=== PATIENT | male | born 1955 | race Caucasian/White ===

== ENCOUNTER 2019-08-08 16:57 | Emergency (ER) | payer OTHER, SELFPAY ==
[2019-08-08] VITALS (9 sets, daily range): BP systolic 143–159; BP diastolic 84–97; PULSE 78–86; RESP 13–18; TEMP 36.7; O2SAT 95–99; BMI 27.1
--- NOTE | 2019-08-08 17:37 | DI.US.S_ITS ---
PROCEDURE: US PERIPH VENOUS LOW EXTREM RT INDICATIONS: RIGHT CALF PAIN TECHNIQUE: Real-time imaging, as well as color and pulse Doppler interrogation, were performed of the lower extremity deep veins from the inguinal ligament to the popliteal fossa. COMPARISON: None. FINDINGS: Deep venous thrombosis present within the distal femoral vein (SFV) and popliteal vein IMPRESSION: Positive examination for deep venous thrombosis. Dictated by: Mac Oneill M.D. on 08/08/2019 at 19:16 Approved by: Mac Oneill M.D. on 08/08/2019 at 19:17
--- NOTE | 2019-08-08 17:43 | DI.RAD.S_ITS ---
PROCEDURE: XR CHEST 1V INDICATIONS: SHORTNESS OF BREATH TECHNIQUE: One view of the chest was acquired. COMPARISON: None. FINDINGS: Surgical changes and devices: None. Lungs and pleura: Lungs are clear. No pleural effusions or pneumothorax. Mediastinum: Mediastinal contours appear normal. Heart size is normal. Bones and chest wall: No suspicious bony lesions. Overlying soft tissues appear unremarkable. IMPRESSION: No acute disease Dictated by: Mac Oneill M.D. on 08/08/2019 at 18:08 Approved by: Mac Oneill M.D. on 08/08/2019 at 18:09
[2019-08-08] MEDS: SODIUM CHLORIDE 0.9% 1,000 ML 999 ML IV (17:45)
--- NOTE | 2019-08-08 17:46 | ED.LOWEXIN ---
HPI - Extremity Injury (Lower) <TOMA Capone - Last Filed: 08/08/19 21:53> General Chief Complaint: Extremity Injury, Lower Stated Complaint: possible DVT right leg Time Seen by Provider: 08/08/19 17:14 Mode of arrival: Ambulatory History of Present Illness HPI Narrative: 64-year-old male with a history of hypertension hyperlipidemia, presents emergency department today complaining of right calf pain and swelling. He states the pain is an intermittent ?cramping? pain that is worse with weight-bearing and palpation. This started 5 days ago after a long car ride that lasted about 7 hours. The day after it started he embarked on another 7 are car ride and reported worsening symptoms. He states today he developed some shortness of breath and is worried about a blood clot. He denies any history of blood clots, denies taking any blood thinners. Patient denies any fevers, chills, cough, nausea, vomiting, abdominal pain, chest pain, syncope, or other concerns. Related Data Home Medications Medication Instructions Recorded Confirmed atorvastatin 40 mg PO DAILY 08/08/19 08/08/19 lisinopril 10 mg PO DAILY 08/08/19 08/08/19 Allergies Allergy/AdvReac Type Severity Reaction Status Date / Time No Known Drug Allergies Allergy Verified 08/08/19 17:54 Review of Systems <TOMA Capone - Last Filed: 08/08/19 21:53> Review of Systems Narrative: REVIEW OF SYSTEMS: GENERAL: Denies fever or chills. HENT: No head trauma, hearing loss or sore throat. EYES: No loss of vision, double vision, eye pain, or irritation. CARDIOVASCULAR: No chest pain or syncope. RESPIRATORY: Patient reports shortness of breath, see HPI.. GASTROINTESTINAL: No nausea, vomiting, diarrhea, or constipation. GENITOURINARY: No flank pain or dysuria. MUSCULOSKELETAL: Patient reports right-sided calf pain, see HPI. INTEGUMENTARY: No rash, lesions, or pruritus. NEURO: No numbness, tingling, memory loss, or confusion. PSYCH: No behavior or mood changes. Patient History <TOMA Capone - Last Filed: 08/08/19 21:53> Medical History HLD (hyperlipidemia) (Acute) HTN (hypertension) (Acute) Social History marital status: household members: spouse Smoking Status: Never smoker Exam <TOMA Capone - Last Filed: 08/08/19 21:53> Initial Vital Signs Initial Vital Signs: Vital Signs Temperature 98.1 F 08/08/19 17:00 Pulse Rate 86 08/08/19 17:00 Respiratory Rate 16 08/08/19 17:00 Blood Pressure 151/95 H 08/08/19 17:00 Pulse Oximetry 99 08/08/19 17:00 PHYSICAL EXAMINATION: GENERAL: Well groomed, alert, and cooperative. Answers questions promptly and appropriately. Vital signs noted. HENT: Normocephalic, atraumatic. Ear canals patent. Oral mucosa is pink and moist. EYES: Conjunctiva pink, sclera white, no periorbital swelling. CHEST: Normal to inspection and without deformities. CARDIOVASCULAR: S1 and S2 sounds normal. Regular rate and rhythm, no murmurs, clicks, or bruits. No pedal edema. RESPIRATORY: Normal respiratory rate, trachea midline, airway patent. No stridor, nasal flaring or accessory muscle use. Lungs are clear in all gonzalez without wheeze, rhonchi, or crackles. GASTROINTESTINAL: Bowel sounds normoactive. Abdomen is soft and non-tender. No organomegaly. MUSCULOSKELETAL: Right calf slightly enlarged when compared to left calf without erythema or induration. Tenderness to palpation of calf. Pedal pulses intact and equal bilaterally. Normal gait and coordination. Equal tone and mass bilaterally. EXTREMITIES: CMS intact. Moves all extremities. No pedal edema. SKIN: Warm, dry, soft, appropriate color for ethnicity. No lesions, rashes, or wounds. NEURO: Alert and Oriented X 3. Good coordination. No ataxia, or sensory deficits, or cognitive issues. PSYCH: Appropriate affect and mood. <Steven Buchanan DO - Last Filed: 08/08/19 23:33> Initial Vital Signs Initial Vital Signs: Vital Signs Temperature 98.1 F 08/08/19 17:00 Pulse Rate 86 08/08/19 17:00 Respiratory Rate 16 08/08/19 17:00 Blood Pressure 151/95 H 08/08/19 17:00 Pulse Oximetry 99 08/08/19 17:00 Scores <Ruth TOMA Pickard - Last Filed: 08/08/19 21:53> Wells' Criteria for DVT Active Cancer (Treatment within 6 months): No Bedridden recently >3 days or major surgery within 4 weeks: No Calf Swelling >3cm compared to other leg: Yes Collateral (nonvericose) superficial veins present: No Entire leg swollen: No Localized tenderness along the deep vein system: Yes Pitting edema, confined to symtomatic leg: No Paralysis, paresis, or recent plaster immobilization of ext: No Previously documented DVT: No Alternative dx to DVT as likely or more likely: No Wells' criteria for DVT: 2 Course <Ruth TOMA Pickard - Last Filed: 08/08/19 21:53> Course Course Narrative: After CT a result of pulmonary embolism and ultrasound result of DVT, patient was started on heparin. [facility] was called at 2000 for consultation and possible transfer. [facility] was called for transfer as [facility] was unable to return call for 2 hours. I spoke with Dr. Villafuerte who accepts patient. ALS transfer form sign. Patient consents to transfer. Orders Ordered: ED Orders 08/08/19 17:37 US periph venous low extrem rt Stat 08/08/19 17:43 XR chest 1V Stat 08/08/19 18:00 B Type Natriuretic Peptide Stat Complete Blood Count AUTO DIFF Stat Comprehensive Metabolic Panel Stat D Dimer Stat Lipase Stat Partial Thromboplastin Time Stat Prothrombin Time INR Stat Troponin & CK Cardiac Panel Stat 08/08/19 18:59 EKG-12 Lead Stat 08/08/19 19:05 CT angio chest PE protocol Stat Discontinued Medications Heparin Sodium (Porcine) (Heparin) 7,100 unit 80 unit/kg (7100 unit) IV NOW ONE Stop: 08/08/19 19:54 Last Admin: 08/08/19 20:07 Dose: 7,100 unit Documented by: ENEIDA Sodium Chloride (Normal Saline 0.9%) 1,000 mls @ 150 mls/hr IV CONT KARIN Last Infusion: 08/08/19 21:03 Dose: 0 mls/hr Documented by: Admin: 08/08/19 17:45 Dose: 999 mls/hr Documented by: ENEIDA Heparin Sodium/Dextrose (Heparin Drip) 25,000 unit in 500 mls @ 31.842 mls/hr IV CONT KARIN; Protocol Last Admin: 08/08/19 20:08 Dose: 18 units/kg/hr, 31.842 mls/hr Documented by: ENEIDA Reevaluation(s) Reevaluation #1: Re-evaluation of patient at 2042, patient remains hemodynamically stable without increasing symptoms. Patient understands diagnosis and plan of care, remains at bedside. Consultations Consultation #1: Patient staffed with Dr. Buchaann. Vital Signs Vital signs: Vital Signs - 8 hr 08/08/19 17:00 08/08/19 19:15 08/08/19 20:00 Temperature 98.1 F Pulse Rate 86 84 78 Respiratory Rate 16 18 18 Blood Pressure 151/95 H Blood Pressure [Right Arm] 150/94 H 159/97 H Pulse Oximetry 99 98 99 08/08/19 20:30 08/08/19 21:00 08/08/19 21:30 Temperature Pulse Rate 83 79 78 Respiratory Rate 17 13 16 Blood Pressure Blood Pressure [Right Arm] 147/84 H 143/96 H Pulse Oximetry 98 98 97 08/08/19 22:01 08/08/19 22:34 08/08/19 22:41 Temperature 98.1 F Pulse Rate 82 80 78 Respiratory Rate 16 13 17 Blood Pressure Blood Pressure [Right Arm] 154/93 H 143/90 H 143/90 H Pulse Oximetry 97 95 98 <Steven Buchanan, - Last Filed: 08/08/19 23:33> Orders Ordered: ED Orders 08/08/19 17:37 US periph venous low extrem rt Stat 08/08/19 17:43 XR chest 1V Stat 08/08/19 18:00 B Type Natriuretic Peptide Stat Complete Blood Count AUTO DIFF Stat Comprehensive Metabolic Panel Stat D Dimer Stat Lipase Stat Partial Thromboplastin Time Stat Prothrombin Time INR Stat Troponin & CK Cardiac Panel Stat 08/08/19 18:59 EKG-12 Lead Stat 08/08/19 19:05 CT angio chest PE protocol Stat Discontinued Medications Heparin Sodium (Porcine) (Heparin) 7,100 unit 80 unit/kg (7100 unit) IV NOW ONE Stop: 08/08/19 19:54 Last Admin: 08/08/19 20:07 Dose: 7,100 unit Documented by: ENEIDA Sodium Chloride (Normal Saline 0.9%) 1,000 mls @ 150 mls/hr IV CONT KARIN Last Infusion: 08/08/19 21:03 Dose: 0 mls/hr Documented by: Admin: 08/08/19 17:45 Dose: 999 mls/hr Documented by: ENEIDA Heparin Sodium/Dextrose (Heparin Drip) 25,000 unit in 500 mls @ 31.842 mls/hr IV CONT KARIN; Protocol Last Admin: 08/08/19 20:08 Dose: 18 units/kg/hr, 31.842 mls/hr Documented by: ENEIDA Vital Signs Vital signs: Vital Signs - 8 hr 08/08/19 17:00 08/08/19 19:15 08/08/19 20:00 Temperature 98.1 F Pulse Rate 86 84 78 Respiratory Rate 16 18 18 Blood Pressure 151/95 H Blood Pressure [Right Arm] 150/94 H 159/97 H Pulse Oximetry 99 98 99 08/08/19 20:30 08/08/19 21:00 08/08/19 21:30 Temperature Pulse Rate 83 79 78 Respiratory Rate 17 13 16 Blood Pressure Blood Pressure [Right Arm] 147/84 H 143/96 H Pulse Oximetry 98 98 97 08/08/19 22:01 08/08/19 22:34 08/08/19 22:41 Temperature 98.1 F Pulse Rate 82 80 78 Respiratory Rate 16 13 17 Blood Pressure Blood Pressure [Right Arm] 154/93 H 143/90 H 143/90 H Pulse Oximetry 97 95 98 MDM - Extremity Injury (Lower) <TOMA Capone - Last Filed: 08/08/19 21:53> Medical Records Attestation: I reviewed the patient's medical records. Lab Data Attestation: I reviewed the patient's lab results. Result diagrams: 08/08/19 18:00 08/08/19 18:00 Labs: Lab Results 08/08/19 08/08/19 08/08/19 Range/Units 18:00 18:00 18:00 WBC 6.6 (4.5-11.0) X10^3/uL RBC 5.23 (4.5-5.9) X10^6/uL Hgb 16.0 (13.5-17.5) g/dL Hct 45.1 (41-53) % MCV 86.2 (80-100) fL MCH 30.6 (26-34) PG MCHC 35.5 (30-36) % RDW 13.4 (11.6-14.8) % Plt Count 175 (150-400) X10^3/uL Neut % (Auto) 70.4 (50-75) % Lymph % (Auto) 15.6 L (25-40) % [place] % (Auto) 10.8 (3-14) % Eos % (Auto) 2.3 (2-4) % Baso % (Auto) 0.9 (0-2) % Neut # (Auto) 4600 (5440-9118) /uL Lymph # (Auto) 1000 L (8067-2973) /uL [place] # (Auto) 700 (0-900) /uL Eos # (Auto) 100 (0-450) /uL Baso # (Auto) 100 (0-100) /uL PT 11.8 (10.1-12.7) SECONDS INR 1.0 (0.9-1.3) APTT 31 (26.4-36.2) SECONDS D-Dimer 2195 H (<230) ng/mL Sodium 139 (137-145) mmol/L Potassium 4.1 (3.4-5.1) mmol/L Chloride 102 (98-107) mmol/L Carbon Dioxide 29 (22-32) mmol/L BUN 17 (9-20) mg/dL Creatinine 1.00 (0.66-1.25) mg/dL Estimated GFR > 60.0 (>60) mL/min BUN/Creatinine Ratio 17.0 (6-22) Glucose 88 (80-110) mg/dL Calcium 9.6 (8.4-10.2) mg/dL Total Bilirubin 0.8 (0.2-1.3) mg/dL AST 30 (17-59) IU/L ALT 36 (<50) IU/L Alkaline Phosphatase 94 (38-126) U/L Total Creatine Kinase 142 (55-170) U/L CK-MB (CK-2) 1.43 (<2.37) ng/mL CK-MB (CK-2) Rel Index 1.0 L (1.5-5.0) % Troponin I 0.013 (0.01-0.034) ng/mL B-Natriuretic Peptide (<100) Total Protein 8.1 (6.3-8.2) g/dL Albumin 4.6 (3.5-5.0) g/dL Globulin 3.5 (1.7-4.1) g/dL Albumin/Globulin Ratio 1.3 (1.0-2.8) Lipase 83 (23-300) U/L 08/08/ Range/Units 18:00 WBC (4.5-11.0) X10^3/uL RBC (4.5-5.9) X10^6/uL Hgb (13.5-17.5) g/dL Hct (41-53) % MCV (80-100) fL MCH (26-34) PG MCHC (30-36) % RDW (11.6-14.8) % Plt Count (150-400) X10^3/uL Neut % (Auto) (50-75) % Lymph % (Auto) (25-40) % [place] % (Auto) (3-14) % Eos % (Auto) (2-4) % Baso % (Auto) (0-2) % Neut # (Auto) (7017-2831) /uL Lymph # (Auto) (8450-5284) /uL [place] # (Auto) (0-900) /uL Eos # (Auto) (0-450) /uL Baso # (Auto) (0-100) /uL PT (10.1-12.7) SECONDS INR (0.9-1.3) APTT (26.4-36.2) SECONDS D-Dimer (<230) ng/mL Sodium (137-145) mmol/L Potassium (3.4-5.1) mmol/L Chloride (98-107) mmol/L Carbon Dioxide (22-32) mmol/L BUN (9-20) mg/dL Creatinine (0.66-1.25) mg/dL Estimated GFR (>60) mL/min BUN/Creatinine Ratio (6-22) Glucose (80-110) mg/dL Calcium (8.4-10.2) mg/dL Total Bilirubin (0.2-1.3) mg/dL AST (17-59) IU/L ALT (<50) IU/L Alkaline Phosphatase (38-126) U/L Total Creatine Kinase (55-170) U/L CK-MB (CK-2) (<2.37) ng/mL CK-MB (CK-2) Rel Index (1.5-5.0) % Troponin I (0.01-0.034) ng/mL B-Natriuretic Peptide < 100 (<100) Total Protein (6.3-8.2) g/dL Albumin (3.5-5.0) g/dL Globulin (1.7-4.1) g/dL Albumin/Globulin Ratio (1.0-2.8) Lipase (23-300) U/L Imaging Data CTA: Radiologist's impression: [address] [address] [address] Scan Report Signed Patient: Gary Dallas BMR#: [id number] : 7Acct:[id number] Age/Sex: 64 / MDate of Service: 08/08/19 Loc: ED Accession Number: [id number] Procedure: CT angio chest PE protocol Ordering Provider: Ruth Pickard PROCEDURE: CT ANGIO CHEST PE PROTOCOL INDICATIONS: SOB, +d-dimer, high risk TECHNIQUE: After the administration of intravenous contrast, 2 mm thick sections acquired from the pulmonary apices to the posterior costophrenic angles. 3-dimensional maximum intensity projection (MIP) coronal and sagittal reformats were then acquired through the thorax. For radiation dose reduction, the following was used: automated exposure control, adjustment of mA and/or kV according to patient size. COMPARISON: None. FINDINGS: Image quality: Excellent. Pulmonary arteries: Prominent main pulmonary artery saddle embolus is present image 74 series 4. Bilateral numerous lobar and segmental pulmonary emboli are seen in both upper and lower lobes. No definite abnormal bowing of the interventricular septum. Lungs and pleura: Scattered subsegmental atelectasis and/or scarring. No focal consolidation.. No pleural effusions or pneumothorax. Central and peripheral airways are patent. Presumed calcified granuloma seen in the right lung on image 182 series 5. Nonspecific 3 mm pulmonary nodule seen in the right lower lobe on image 193 series 5. 6 mm nodule seen in the left lung base on image to 34 series 5. Indeterminate 1 mm left upper lobe pulmonary nodule image 100 series 5. Mediastinum: Heart size is normal, without pericardial effusion. No mediastinal or hilar adenopathy. Thoracic aorta is normal in caliber and enhancement. Esophagus is normal in caliber, without hiatal hernia. Bones and chest wall: No suspicious bony lesions. Ribs and thoracic spine appear intact throughout. Thyroid gland unremarkable. No axillary or supraclavicular adenopathy. Abdomen: Visualized upper abdominal solid organs appear normal in the early arterial phase of enhancement. IMPRESSION: Extensive pulmonary emboli, including main pulmonary saddle embolus as above. No acute consolidation, however indeterminate subcentimeter pulmonary nodules for which a repeat chest CT is recommended in 6 months to assess for possible early metastatic or malignant etiologies. Findings were personally telephoned and discussed with Ruth CHUA in the emergency department at 1947 hours 08/08/19. Dictated by: Mac Oneill M.D. on 08/08/2019 at 19:39 Approved by: Mac Oneill M.D. on 08/08/2019 at 19:48 US LE: Radiologist's impression: [address] [address] Ultrasound Report Signed Patient: BurtGary BMR#: [id number] : 7Acct:[id number] Age/Sex: 64 / MDate of Service: 08/08/19 Loc: ED Accession Number: [id number] Procedure: US periph venous low extrem rt Ordering Provider: Ruth Pickard PROCEDURE: US PERIPH VENOUS LOW EXTREM RT INDICATIONS: RIGHT CALF PAIN TECHNIQUE: Real-time imaging, as well as color and pulse Doppler interrogation, were performed of the lower extremity deep veins from the inguinal ligament to the popliteal fossa. COMPARISON: None. FINDINGS: Deep venous thrombosis present within the distal femoral vein (SFV) and popliteal vein IMPRESSION: Positive examination for deep venous thrombosis. Dictated by: Mac Oneill M.D. on 08/08/2019 at 19:16 Approved by: Mac Oneill M.D. on 08/08/2019 at 19:17 Chest x-ray: Radiologist's impression: [address] [address] XRay Report Signed Patient: BurtGary BMR#: [id number] : 7Acct:[id number] Age/Sex: 64 / MDate of Service: 08/08/19 Loc: ED Accession Number: [id number] Procedure: XR chest 1V Ordering Provider: Ruth Pickard PROCEDURE: XR CHEST 1V INDICATIONS: SHORTNESS OF BREATH TECHNIQUE: One view of the chest was acquired. COMPARISON: None. FINDINGS: Surgical changes and devices: None. Lungs and pleura: Lungs are clear. No pleural effusions or pneumothorax. Mediastinum: Mediastinal contours appear normal. Heart size is normal. Bones and chest wall: No suspicious bony lesions. Overlying soft tissues appear unremarkable. IMPRESSION: No acute disease Dictated by: Mac Oneill M.D. on 08/08/2019 at 18:08 Approved by: Mac Oneill M.D. on 08/08/2019 at 18:09 ECG Data Interpretation: Normal sinus rhythm, rate 76, SD interval 168, QTC 402. No ST elevation or ST depression. T-wave inversion noted to lead 3. No ectopy. EKG also viewed by Dr. Buchanan as per protocol. MDM Narrative Medical decision making narrative: This is a 64-year-old male with a saddle pulmonary embolism, multiple small pulmonary embolism, and I right femoral and popliteal DVT. There is little evidence of cardiac distress as patient has a normal EKG, no stress seen on CT imaging, BNP <100, and lack of heart failure symptoms such as lower extremity swelling. Patient was started on IV heparin after consultation with the attending Dr. Buchanan. Patient admitted to [facility] by . Patient remained alert and awake and hemodynamically stable throughout stay in the emergency department. Patient was signed out to Dr. Buchanan. <Steven Buchanan, DO - Last Filed: 08/08/19 23:33> Lab Data Labs: Lab Results 08/08/19 08/08/19 08/08/19 Range/Units 18:00 18:00 18:00 WBC 6.6 (4.5-11.0) X10^3/uL RBC 5.23 (4.5-5.9) X10^6/uL Hgb 16.0 (13.5-17.5) g/dL Hct 45.1 (41-53) % MCV 86.2 (80-100) fL MCH 30.6 (26-34) PG MCHC 35.5 (30-36) % RDW 13.4 (11.6-14.8) % Plt Count 175 (150-400) X10^3/uL Neut % (Auto) 70.4 (50-75) % Lymph % (Auto) 15.6 L (25-40) % [place] % (Auto) 10.8 (3-14) % Eos % (Auto) 2.3 (2-4) % Baso % (Auto) 0.9 (0-2) % Neut # (Auto) 4600 (1568-4378) /uL Lymph # (Auto) 1000 L (8776-7983) /uL [place] # (Auto) 700 (0-900) /uL Eos # (Auto) 100 (0-450) /uL Baso # (Auto) 100 (0-100) /uL PT 11.8 (10.1-12.7) SECONDS INR 1.0 (0.9-1.3) APTT 31 (26.4-36.2) SECONDS D-Dimer 2195 H (<230) ng/mL Sodium 139 (137-145) mmol/L Potassium 4.1 (3.4-5.1) mmol/L Chloride 102 (98-107) mmol/L Carbon Dioxide 29 (22-32) mmol/L BUN 17 (9-20) mg/dL Creatinine 1.00 (0.66-1.25) mg/dL Estimated GFR > 60.0 (>60) mL/min BUN/Creatinine Ratio 17.0 (6-22) Glucose 88 (80-110) mg/dL Calcium 9.6 (8.4-10.2) mg/dL Total Bilirubin 0.8 (0.2-1.3) mg/dL AST 30 (17-59) IU/L ALT 36 (<50) IU/L Alkaline Phosphatase 94 (38-126) U/L Total Creatine Kinase 142 (55-170) U/L CK-MB (CK-2) 1.43 (<2.37) ng/mL CK-MB (CK-2) Rel Index 1.0 L (1.5-5.0) % Troponin I 0.013 (0.01-0.034) ng/mL B-Natriuretic Peptide (<100) Total Protein 8.1 (6.3-8.2) g/dL Albumin 4.6 (3.5-5.0) g/dL Globulin 3.5 (1.7-4.1) g/dL Albumin/Globulin Ratio 1.3 (1.0-2.8) Lipase 83 (23-300) U/L 08/08/19 Range/Units 18:00 WBC (4.5-11.0) X10^3/uL RBC (4.5-5.9) X10^6/uL Hgb (13.5-17.5) g/dL Hct (41-53) % MCV (80-100) fL MCH (26-34) PG MCHC (30-36) % RDW (11.6-14.8) % Plt Count (150-400) X10^3/uL Neut % (Auto) (50-75) % Lymph % (Auto) (25-40) % [place] % (Auto) (3-14) % Eos % (Auto) (2-4) % Baso % (Auto) (0-2) % Neut # (Auto) (0112-5811) /uL Lymph # (Auto) (1470-2897) /uL [place] # (Auto) (0-900) /uL Eos # (Auto) (0-450) /uL Baso # (Auto) (0-100) /uL PT (10.1-12.7) SECONDS INR (0.9-1.3) APTT (26.4-36.2) SECONDS D-Dimer (<230) ng/mL Sodium (137-145) mmol/L Potassium (3.4-5.1) mmol/L Chloride (98-107) mmol/L Carbon Dioxide (22-32) mmol/L BUN (9-20) mg/dL Creatinine (0.66-1.25) mg/dL Estimated GFR (>60) mL/min BUN/Creatinine Ratio (6-22) Glucose (80-110) mg/dL Calcium (8.4-10.2) mg/dL Total Bilirubin (0.2-1.3) mg/dL AST (17-59) IU/L ALT (<50) IU/L Alkaline Phosphatase (38-126) U/L Total Creatine Kinase (55-170) U/L CK-MB (CK-2) (<2.37) ng/mL CK-MB (CK-2) Rel Index (1.5-5.0) % Troponin I (0.01-0.034) ng/mL B-Natriuretic Peptide < 100 (<100) Total Protein (6.3-8.2) g/dL Albumin (3.5-5.0) g/dL Globulin (1.7-4.1) g/dL Albumin/Globulin Ratio (1.0-2.8) Lipase (23-300) U/L <Steven Buchanan DO - Last Filed: 08/08/19 23:33> Critical Care Time Critical Care Time: Yes Total Critical Care Time: 35 Attestation: The high probability of a clinically significant, sudden or life threatening deterioration of the [CV] system(s) required my full and direct attention, intervention and personal management. The aggregate critical care time was [35] minutes. This time is in addition to time spent performing reported procedures but includes the following: [x] Data Review and interpretation [x] Patient assessment and monitoring of vital signs [x] Documentation [x] Medication orders and management Discharge Plan Departure Patient Disposition: [facility] Clinical Impression: Acute saddle pulmonary embolism Qualifiers: Acute cor pulmonale presence: unspecified Qualified Code(s): I26.92 - Saddle embolus of pulmonary artery without acute cor pulmonale Deep vein thrombosis (DVT) of right lower extremity Qualifiers: Affected thrombotic vein of extremity: femoral Chronicity: acute Qualified Code(s): I82.411 - Acute embolism and thrombosis of right femoral vein Discharge Date/Time: 08/08/19 22:58 Prescriptions: No Action atorvastatin 40 mg Tablet 40 mg PO DAILY RF: 0 lisinopril 10 mg Tablet 10 mg PO DAILY RF: 0 Stand Alone Forms: Work Release Note
[2019-08-08 18:11] LABS: Add Manual Diff / Slide Review NO; Basophils Absolute Auto 100 /uL (0-100); Basophils Percent Auto 0.9 % (0-2); Eosinophils Absolute Auto 100 /uL (0-450); Eosinophils Percent Auto 2.3 % (2-4); Hematocrit 45.1 % (41-53); Lymphocytes Absolute Auto 1000 /uL (1100-4500); Lymphocytes Percent Auto 15.6 % (25-40); Mean Corpuscular HGB Conc 35.5 % (30-36); Mean Corpuscular Hemoglobin 30.6 PG (26-34); Mean Corpuscular Volume 86.2 fL (80-100); Monocytes Absolute Auto 700 /uL (0-900); Monocytes Percent Auto 10.8 % (3-14); Neutrophils Absolute Auto 4600 /uL (1500-7000); Neutrophils Percent Auto 70.4 % (50-75); Platelet Count 175 X10^3/uL (150-400); Red Blood Cell Count 5.23 X10^6/uL (4.5-5.9); Red Cell Distribution Width 13.4 % (11.6-14.8); White Blood Cell Count 6.6 X10^3/uL (4.5-11.0)
[2019-08-08 18:18] LABS: Prothrombin Time 11.8 SECONDS (10.1-12.7)
[2019-08-08 18:21] LABS: PTT Partial Thromboplastin Tim 31 SECONDS (26.4-36.2)
[2019-08-08 18:23] LABS: Alanine Aminotransferase 36 IU/L (<50); Albumin 4.6 g/dL (3.5-5.0); Albumin Globulin Ratio 1.3 (1.0-2.8); Alkaline Phosphatase 94 U/L (38-126); Aspartate Aminotransferase 30 IU/L (17-59); Bilirubin Total 0.8 mg/dL (0.2-1.3); Blood Urea Nitrogen 17 mg/dL (9-20); Calcium 9.6 mg/dL (8.4-10.2); Carbon Dioxide 29 mmol/L (22-32); Chloride 102 mmol/L (98-107); Creatine Kinase 142 U/L (55-170); Estimated Glomerular Filt Rate > 60.0 mL/min (>60); Globulin 3.5 g/dL (1.7-4.1); Glucose 88 mg/dL (80-110); HEMOLYSIS < 15 (0-50); Lipase 83 U/L (23-300); Potassium 4.1 mmol/L (3.4-5.1); Sodium 139 mmol/L (137-145); Total Protein 8.1 g/dL (6.3-8.2)
[2019-08-08 18:28] LABS: D Dimer 2195 ng/mL (<230)
[2019-08-08 18:35] LABS: Troponin I 0.013 ng/mL (0.01-0.034)
[2019-08-08 18:38] LABS: Creatine Kinase MB 1.43 ng/mL (<2.37)
--- NOTE | 2019-08-08 19:05 | DI.CT.S_ITS ---
PROCEDURE: CT ANGIO CHEST PE PROTOCOL INDICATIONS: SOB, +d-dimer, high risk TECHNIQUE: After the administration of intravenous contrast, 2 mm thick sections acquired from the pulmonary apices to the posterior costophrenic angles. 3-dimensional maximum intensity projection (MIP) coronal and sagittal reformats were then acquired through the thorax. For radiation dose reduction, the following was used: automated exposure control, adjustment of mA and/or kV according to patient size. COMPARISON: None. FINDINGS: Image quality: Excellent. Pulmonary arteries: Prominent main pulmonary artery saddle embolus is present image 74 series 4. Bilateral numerous lobar and segmental pulmonary emboli are seen in both upper and lower lobes. No definite abnormal bowing of the interventricular septum. Lungs and pleura: Scattered subsegmental atelectasis and/or scarring. No focal consolidation.. No pleural effusions or pneumothorax. Central and peripheral airways are patent. Presumed calcified granuloma seen in the right lung on image 182 series 5. Nonspecific 3 mm pulmonary nodule seen in the right lower lobe on image 193 series 5. 6 mm nodule seen in the left lung base on image to 34 series 5. Indeterminate 1 mm left upper lobe pulmonary nodule image 100 series 5. Mediastinum: Heart size is normal, without pericardial effusion. No mediastinal or hilar adenopathy. Thoracic aorta is normal in caliber and enhancement. Esophagus is normal in caliber, without hiatal hernia. Bones and chest wall: No suspicious bony lesions. Ribs and thoracic spine appear intact throughout. Thyroid gland unremarkable. No axillary or supraclavicular adenopathy. Abdomen: Visualized upper abdominal solid organs appear normal in the early arterial phase of enhancement. IMPRESSION: Extensive pulmonary emboli, including main pulmonary saddle embolus as above. No acute consolidation, however indeterminate subcentimeter pulmonary nodules for which a repeat chest CT is recommended in 6 months to assess for possible early metastatic or malignant etiologies. Findings were personally telephoned and discussed with Ruth CHUA in the emergency department at 1947 hours 08/08/19. Dictated by: Mac Oneill M.D. on 08/08/2019 at 19:39 Approved by: Mac Oneill M.D. on 08/08/2019 at 19:48
[2019-08-08] MEDS: HEPARIN 5,000 UNIT/ML VIAL 7100 UNIT IV (20:07)
[2019-08-08] MEDS: HEPARIN DRIP 25,000 UNIT/500 ML IV.SOLN 31.842 UNIT IV (20:08)
--- NOTE | 2019-08-08 20:20 | PC.NURSE ---
[place]ya Acosta Rn 2nd check to Heparin start.
[2019-08-08 20:44] LABS: B Type Natriuretic Peptide < 100 (<100)
--- NOTE | 2019-09-12 04:21 | PC.NURSE ---
Late entry note Heparin infusion stop time 08/08/2019 22:58 88ml's total intake IV infusion.
== END 2019-08-08 22:58 | disposition short-term general hospital (02) ==
PROVIDERS: Emergency Provider Nurse Practitioner
DX: I26.92 Saddle embolus of pulmonary artery without acute cor pulmonale (principal); I82.411 Acute embolism and thrombosis of right femoral vein
CPT/HCPCS: 36415; 71045; 71275; 80053; 82550; 82553; 83690; 83880; 84484; 85025; 85379; 85610; 85730; 93005; 93971; 96361; 96365; 96366; 96375; 99283; 99291; J1644

== ENCOUNTER 2019-08-12 10:26 | Emergency (ER) | payer OTHER, SELFPAY ==
[2019-08-12 10:44] VITALS: BP 148/89; PULSE 97; RESP 21; TEMP 36.7; O2SAT 98; BMI 27.1
--- NOTE | 2019-08-12 11:12 | DI.RAD.S_ITS ---
PROCEDURE: XR CHEST 1V INDICATIONS: chest pain TECHNIQUE: One view of the chest was acquired. COMPARISON: [facility], CT, CT ANGIO CHEST PE PROTOCOL, 08/08/2019, 19:08. [facility], CR, XR CHEST 1V, 08/08/2019, 17:46. FINDINGS: Surgical changes and devices: None. Lungs and pleura: Coarsened appearance of the bases bilaterally. It is relatively unchanged. Mediastinum: Mediastinal contours appear normal. Heart size is normal. Bones and chest wall: No suspicious bony lesions. Overlying soft tissues appear unremarkable. IMPRESSION: Coarsened bibasilar appearance suggest of atelectasis or edema. Dictated by: Lexie Mims M.D. on 08/12/2019 at 12:01 Approved by: Lexie Mims M.D. on 08/12/2019 at 12:02
[2019-08-12 11:37] VITALS: BP 129/82; PULSE 82; O2SAT 95
[2019-08-12 11:38] LABS: Add Manual Diff / Slide Review NO; Basophils Absolute Auto 0 /uL (0-100); Basophils Percent Auto 0.5 % (0-2); Eosinophils Absolute Auto 100 /uL (0-450); Eosinophils Percent Auto 1.1 % (2-4); Hematocrit 43.8 % (41-53); Hemoglobin 15.6 g/dL (13.5-17.5); Lymphocytes Absolute Auto 900 /uL (1100-4500); Lymphocytes Percent Auto 10.4 % (25-40); Mean Corpuscular HGB Conc 35.5 % (30-36); Mean Corpuscular Hemoglobin 30.8 PG (26-34); Mean Corpuscular Volume 86.7 fL (80-100); Monocytes Absolute Auto 1100 /uL (0-900); Monocytes Percent Auto 12.7 % (3-14); Neutrophils Absolute Auto 6700 /uL (1500-7000); Neutrophils Percent Auto 75.3 % (50-75); Platelet Count 202 X10^3/uL (150-400); Red Blood Cell Count 5.05 X10^6/uL (4.5-5.9); White Blood Cell Count 8.8 X10^3/uL (4.5-11.0)
[2019-08-12] MEDS: SODIUM CHLORIDE 0.9% 1,000 ML 1000 ML IV (11:43)
[2019-08-12 11:46] LABS: INR 1.8 (0.9-1.3); Prothrombin Time 20.6 SECONDS (10.1-12.7)
[2019-08-12 11:49] LABS: PTT Partial Thromboplastin Tim 36 SECONDS (26.4-36.2)
[2019-08-12 11:51] LABS: Alanine Aminotransferase 51 IU/L (<50); Albumin 4.4 g/dL (3.5-5.0); Albumin Globulin Ratio 1.3 (1.0-2.8); Alkaline Phosphatase 101 U/L (38-126); Aspartate Aminotransferase 38 IU/L (17-59); Blood Urea Nitrogen 17 mg/dL (9-20); Calcium 9.6 mg/dL (8.4-10.2); Carbon Dioxide 27 mmol/L (22-32); Chloride 102 mmol/L (98-107); Creatine Kinase 98 U/L (55-170); Estimated Glomerular Filt Rate > 60.0 mL/min (>60); Globulin 3.3 g/dL (1.7-4.1); Glucose 101 mg/dL (80-110); HEMOLYSIS < 15 (0-50); Lipase 48 U/L (23-300); Potassium 4.1 mmol/L (3.4-5.1); Sodium 137 mmol/L (137-145); Total Protein 7.7 g/dL (6.3-8.2)
[2019-08-12 12:03] LABS: Troponin I < 0.012 ng/mL (0.01-0.034)
--- NOTE | 2019-08-12 12:07 | ED_ITS ---
HPI - Chest Pain General Chief Complaint: Chest Pain Stated Complaint: dx w/ pulm em/ cough/ chest pain Time Seen by Provider: 08/12/19 10:39 Source: patient Mode of arrival: Ambulatory Limitations: no limitations History of Present Illness HPI narrative: Patient comes emergency department his complaining left- sided chest pain that is worse with deep breaths and movements that expand the chest. He states this has been going on since yesterday. He is concerned because he was just diagnosed with multiple PEs several days ago, including a saddle embolus. He was just discharged from [facility] a couple of days ago and has been on Eliquis since. He states he has been going for walks and has not necessarily feel short of breath, but that this sensation of tight sore left chest concerned him. He does note that he has been coughing a lot whenever he walks around. Patient denies fevers or chills. He denies any phlegm production. he denies any nausea or vomiting. No abdominal pain. No other complaints at this time. Patient states he had a stress echo within the last 8 months that was unremarkable, and another echocardiogram done at [facility] during his recent admission did not show right heart strain. Patient was kept in the hospital only 1 night and initially treated with heparin, after which he was discharged on Eliquis. Patient states he is from [place], [place] and is up here with his to take care of his parents for a while. He states he is headed back to [place] in a couple of weeks. Related Data Home Medications Medication Instructions Recorded Confirmed atorvastatin 40 mg PO QPM 08/08/19 08/13/19 lisinopril 10 mg PO DAILY 08/08/19 08/13/19 apixaban [Eliquis] 10 mg PO [id number] 08/13/19 08/13/19 Previous Rx's Medication Instructions Recorded hydrocodone-acetaminophen 1 tab PO Q4-6H PRN #20 tab 08/13/19 Allergies Allergy/AdvReac Type Severity Reaction Status Date / Time No Known Drug Allergies Allergy Verified 08/13/19 08:14 Review of Systems Constitutional Constitutional: Denies chills, Denies fatigue, Denies fever(s), Denies frequent falls, Denies lethargy and Denies weakness Eyes Eyes: Denies change in vision, Denies eye discharge, Denies irritation and Denies loss of vision ENT Ears, Nose, Mouth, and Throat: Denies change in voice, Denies dizziness, Denies neck pain, Denies sore throat and Denies throat swelling Cardiovascular Cardiovascular: Reports chest pain, Denies irregular heart rhythm, Denies lightheadedness, Denies palpitations, Denies dyspnea, Denies dyspnea on exertion and Denies orthopnea Respiratory Respiratory: Denies cough, Denies dyspnea, Denies dyspnea on exertion and Denies wheezing Gastrointestinal Gastrointestinal: Denies abdominal pain, Denies change in bowel habits, Denies diarrhea, Denies nausea and Denies vomiting Genitourinary Genitourinary: Denies hematuria, Denies flank pain, Denies urinary incontinence and Denies urinary urgency Musculoskeletal Musculoskeletal: Denies back pain, Denies muscle weakness, Denies neck pain, Denies numbness and Denies tingling Integumentary/Breasts Skin/Breast: Denies pruritus, Denies erythema, Denies rash and Denies wounds Neurologic Neurologic: Denies behavioral changes, Denies confusion, Denies dizziness, Denies frequent falls, Denies loss of vision, Denies numbness, Denies tingling and Denies weakness Psychiatric Psychiatric: Denies anxiety, Denies behavioral changes, Denies confusion, Denies depression, Denies homicidal ideation and Denies suicidal ideation Endocrine Endocrine: Denies fatigue, Denies flushing and Denies palpitations Hematologic/Lymphatic Hematologic/Lymphatic: Denies easy bruising Allergic/Immunologic Allergic/Immunologic: Denies urticaria, Denies throat swelling and Denies wheezing Patient History Medical History (Updated 08/13/19 @ 11:18 by Ronna Canales MD) Acute saddle pulmonary embolism (Acute) Chest wall pain (Acute) Deep vein thrombosis (DVT) of right lower extremity (Acute) HLD (hyperlipidemia) (Acute) HTN (hypertension) (Acute) Social History marital status: household members: spouse Smoking Status: Never smoker Exam Initial Vital Signs Initial Vital Signs: Vital Signs Temperature 98.0 F 08/12/19 10:44 Pulse Rate 97 H 08/12/19 10:44 Respiratory Rate 21 08/12/19 10:44 Blood Pressure 148/89 H 08/12/19 10:44 Pulse Oximetry 98 08/12/19 10:44 Const General: cooperative and well developed Nutritional Appearance: well nourished Orientation: alert, awake, oriented x3 and not confused [facility] Head: normocephalic and atraumatic Ears: external ears normal Nose: external nose normal and No nasal discharge Face and sinus: sinuses nontender, face symmetric and No dry mucous membranes Mouth: oral mucosae normal and moist mucous membranes Teeth and gingiva: dentition normal Eyes General: appearance normal, both eyes and all related structures Eyelids: eyelids normal Conjunctivae: conjunctivae normal Sclera: sclerae normal Pupils: PERRL EOM: EOM intact bilaterally Neck Neck: normal visual inspection, trachea midline, No lymphadenopathy, No midline deformity and No JVD Lymphatic: No lymphedema Chest Chest: normal inspection of the chest Resp Effort & Inspection: normal respiratory effort, able to speak in complete sentences, no respiratory distress and no use of accessory muscles Auscultation: clear to auscultation bilaterally, no rales, no rhonchi and no wheezes Cardio Rate: regular rate Rhythm: regular rhythm Heart Sounds: no click, no gallops, no murmurs and no rubs Pulses: normal peripheral pulses GI Inspection: non-distended Palpation: soft, no hepatosplenomegaly, No guarding, No pulsatile mass and No tender Auscultation: normal bowel sounds Back/Spine/Pelvis Back: No CVA tenderness Cervical Spine: cervical ROM normal and No pain with cervical ROM Thoracic/Lumbar Spine: thoracic and lumbar spine normal to inspection Skin General: no rashes or lesions noted, No jaundice and No petechiae Neuro General: alert, oriented x3, gait normal and no focal motor deficits Speech: speech normal Extrem General: full ROM, no clubbing, cyanosis or edema, no pedal edema and no calf tenderness Psych Appearance: well kempt Mental Status: mental status grossly normal Attitude: cooperative Thought Content: normal and suicidality Judgment: judgment good Course Course Course Narrative: The patient's vital signs were normal and the patient actually was quite well-appearing. I discussed at length with the patient and his the approach to the post PE patient. The patient is appropriately treated with Eliquis, and has been without fever or actual dyspnea. His symptoms are very much indicative of chest wall etiology, and between these things and the normal vital signs, I do not feel that repeat CT scan is indicated at this time. Wo rkup was done including labs and chest x-ray and this was unremarkable for any acute or worrisome findings. We have discussed home management the symptoms, as well as the usual indications for return. Orders Ordered: Discontinued Medications Sodium Chloride (Normal Saline 0.9%) 1,000 mls @ 1,000 mls/hr IV BOLUS ONE Stop: 08/12/19 12:17 Last Infusion: 08/12/19 12:54 Dose: 0 mls/hr Documented by: Admin: 08/12/19 11:43 Dose: 1,000 mls/hr Documented by: VALERIE Vital Signs Vital signs: Vital Signs - 8 hr 08/12/19 10:44 08/12/19 11:37 Temperature 98.0 F Pulse Rate 97 H 82 Respiratory Rate 21 Blood Pressure 148/89 H Blood Pressure [Left Arm] 129/82 Pulse Oximetry 98 95 MDM - Chest Pain Medical Records Data Attestation: I reviewed the patient's medical records. Lab Data Attestation: I reviewed the patient's lab results. Result diagrams: 08/12/19 11:30 08/12/19 11:30 Labs: Lab Results 08/12/19 08/12/19 08/12/19 Range/Units 11:30 11:30 11:30 WBC 8.8 (4.5-11.0) X10^3/uL RBC 5.05 (4.5-5.9) X10^6/uL Hgb 15.6 (13.5-17.5) g/dL Hct 43.8 (41-53) % MCV 86.7 (80-100) fL MCH 30.8 (26-34) PG MCHC 35.5 (30-36) % RDW 13.0 (11.6-14.8) % Plt Count 202 (150-400) X10^3/uL Neut % (Auto) 75.3 H (50-75) % Lymph % (Auto) 10.4 L (25-40) % Lyman % (Auto) 12.7 (3-14) % Eos % (Auto) 1.1 L (2-4) % Baso % (Auto) 0.5 (0-2) % Neut # (Auto) 6700 (0732-7334) /uL Lymph # (Auto) 900 L (9263-7764) /uL Lyman # (Auto) 1100 H (0-900) /uL Eos # (Auto) 100 (0-450) /uL Baso # (Auto) 0 (0-100) /uL PT 20.6 H D (10.1-12.7) SECONDS INR 1.8 H (0.9-1.3) APTT 36 D (26.4-36.2) SECONDS Sodium 137 (137-145) mmol/L Potassium 4.1 (3.4-5.1) mmol/L Chloride 102 (98-107) mmol/L Carbon Dioxide 27 (22-32) mmol/L BUN 17 (9-20) mg/dL Creatinine 1.00 (0.66-1.25) mg/dL Estimated GFR > 60.0 (>60) mL/min BUN/Creatinine Ratio 17.0 (6-22) Glucose 101 (80-110) mg/dL Calcium 9.6 (8.4-10.2) mg/dL Total Bilirubin 1.0 (0.2-1.3) mg/dL AST 38 (17-59) IU/L ALT 51 H (<50) IU/L Alkaline Phosphatase 101 (38-126) U/L Total Creatine Kinase 98 (55-170) U/L CK-MB (CK-2) TNP CK-MB (CK-2) Rel Index TNP Troponin I < 0.012 (0.01-0.034) ng/mL Total Protein 7.7 (6.3-8.2) g/dL Albumin 4.4 (3.5-5.0) g/dL Globulin 3.3 (1.7-4.1) g/dL Albumin/Globulin Ratio 1.3 (1.0-2.8) Lipase 48 (23-300) U/L Imaging Data Chest x-ray: Radiologist's impression: PROCEDURE: XR CHEST 1V INDICATIONS: chest pain TECHNIQUE: One view of the chest was acquired. COMPARISON: [facility], CT, CT ANGIO CHEST PE PROTOCOL, 08/08/2019, 19:08. [facility], CR, XR CHEST 1V, 08/08/2019, 17:46. FINDINGS: Surgical changes and devices: None. Lungs and pleura: Coarsened appearance of the bases bilaterally. It is relatively unchanged. Mediastinum: Mediastinal contours appear normal. Heart size is normal. Bones and chest wall: No suspicious bony lesions. Overlying soft tissues appear unremarkable. IMPRESSION: Coarsened bibasilar appearance suggest of atelectasis or edema. Dictated by: Lexie Mims M.D. on 08/12/2019 at 12:01 Approved by: Lexie Mims M.D. on 08/12/2019 at 12:02 Discharge Plan Departure Patient Disposition: Home Clinical Impression: Chest wall pain Discharge Date/Time: 08/12/19 13:51 Instructions: DI for Chest Pain Activity Restrictions/Additional Instructions: Your labs EKG, and chest x-ray all looked good. There is no evidence of a serious condition or complication of your pulmonary emboli. At this point in time, your vital signs are normal, your lungs are clear, and you are not in respiratory distress. As such, there is no utility in repeating the CT scan this time. However, if you began to deteriorate, or anything seems as though it is worsening, please return to the emergency department immediately. Otherwise, please continue to get exercise as tolerated, breathe deeply, and continue your plans for follow-up with your primary care physician when you return to [place]. Prescriptions: No Action atorvastatin 40 mg Tablet 40 mg PO QPM RF: 0 lisinopril 10 mg Tablet 10 mg PO DAILY RF: 0 Eliquis 5 mg tablet 10 mg PO [id number] RF: 0 hydrocodone-acetaminophen 5-325 mg tablet 1 tab PO Q4-6H PRN (Reason: pain) Qty: 20 RF: 0
[2019-08-12 12:36] VITALS: BP 134/80; PULSE 79; O2SAT 97
== END 2019-08-12 13:51 | disposition home or self-care (01) ==
PROVIDERS: Emergency Provider Emergency Medicine
DX: R07.89 Other chest pain (principal); I10 Essential (primary) hypertension; E78.2 Mixed hyperlipidemia; I26.99 Other pulmonary embolism without acute cor pulmonale
CPT/HCPCS: 36415; 71045; 80053; 82550; 83690; 84484; 85025; 85610; 85730; 93005; 96360; 99283; 99285

== ENCOUNTER 2019-08-13 07:51 | Emergency (ER) | payer OTHER, SELFPAY ==
[2019-08-13 07:55] VITALS: BP 157/77; PULSE 101; RESP 20; TEMP 37; O2SAT 99; BMI 27.1
--- NOTE | 2019-08-13 08:46 | ED_ITS ---
HPI - SOB/Dyspnea General Chief Complaint: Shortness of Breath/Dyspnea Stated Complaint: Diagnosed PE, intensified difficulty breathing Time Seen by Provider: 08/13/19 08:06 Source: patient Mode of arrival: Ambulatory Limitations: no limitations History of Present Illness HPI Narrative: Patient comes emergency department complaining of left-sided chest pain with deep breaths, movement, or cough that is worse since his last visit yesterday. Patient denies development of fevers. He states that he can only breathe about half is deeply as he was able to breathe yesterday, and his exertional tolerance is down because of this. Patient states that he cannot tell if he is otherwise short of breath. He denies anything else that is new. No nausea or vomiting. No abdominal pain. No change in his cough. No sputum production. Patient was diagnosed with multiple pulmonary emboli on August 08, including a saddle embolus, and was transferred to [facility] at that time. He was kept in the hospital only 1 night, during which time he was given heparin and had an echocardiogram performed. Per patient's report, the echo looked good, and patient was told that he did not have any right heart strain. The patient denies any swelling in his lower extremities that it has progressed over the last few days. He was found to have a DVT in his right lower extremity. He is currently on Eliquis and reports no problems with this so far. No other complaints at this time. As per my documentation yesterday, the patient has no cardiac history. Related Data Home Medications Medication Instructions Recorded Confirmed atorvastatin 40 mg PO QPM 08/08/19 08/13/19 lisinopril 10 mg PO DAILY 08/08/19 08/13/19 apixaban [Eliquis] 10 mg PO [id number] 08/13/19 08/13/19 Previous Rx's Medication Instructions Recorded hydrocodone-acetaminophen 1 tab PO Q4-6H PRN #20 tab 08/13/19 Allergies Allergy/AdvReac Type Severity Reaction Status Date / Time No Known Drug Allergies Allergy Verified 08/13/19 08:14 Review of Systems Constitutional Constitutional: Denies chills, Denies fatigue, Denies fever(s), Denies frequent falls, Denies lethargy and Denies weakness Eyes Eyes: Denies change in vision, Denies eye discharge, Denies irritation and Denies loss of vision ENT Ears, Nose, Mouth, and Throat: Denies change in voice, Denies dizziness, Denies neck pain, Denies sore throat and Denies throat swelling Cardiovascular Cardiovascular: Reports chest pain, Denies irregular heart rhythm, Denies lightheadedness, Denies palpitations, Denies dyspnea, Denies dyspnea on exertion and Denies orthopnea Respiratory Respiratory: Denies cough, Denies dyspnea, Denies dyspnea on exertion and Denies wheezing Gastrointestinal Gastrointestinal: Denies abdominal pain, Denies change in bowel habits, Denies diarrhea, Denies nausea and Denies vomiting Genitourinary Genitourinary: Denies hematuria, Denies flank pain, Denies urinary incontinence and Denies urinary urgency Musculoskeletal Musculoskeletal: Denies back pain, Denies muscle weakness, Denies neck pain, Denies numbness and Denies tingling Integumentary/Breasts Skin/Breast: Denies pruritus, Denies erythema, Denies rash and Denies wounds Neurologic Neurologic: Denies behavioral changes, Denies confusion, Denies dizziness, Denies frequent falls, Denies loss of vision, Denies numbness, Denies tingling and Denies weakness Psychiatric Psychiatric: Denies anxiety, Denies behavioral changes, Denies confusion, Denies depression, Denies homicidal ideation and Denies suicidal ideation Endocrine Endocrine: Denies fatigue, Denies flushing and Denies palpitations Hematologic/Lymphatic Hematologic/Lymphatic: Denies easy bruising Allergic/Immunologic Allergic/Immunologic: Denies urticaria, Denies throat swelling and Denies wheezing Patient History Medical History (Updated 08/13/19 @ 11:18 by Ronna Canales MD) Acute saddle pulmonary embolism (Acute) Chest wall pain (Acute) Deep vein thrombosis (DVT) of right lower extremity (Acute) HLD (hyperlipidemia) (Acute) HTN (hypertension) (Acute) Social History marital status: household members: spouse Smoking Status: Never smoker Exam Initial Vital Signs Initial Vital Signs: Vital Signs Temperature 98.6 F 08/13/19 07:55 Pulse Rate 101 H 08/13/19 07:55 Respiratory Rate 20 08/13/19 07:55 Blood Pressure 157/77 H 08/13/19 07:55 Pulse Oximetry 99 08/13/19 07:55 Const General: cooperative and well developed Nutritional Appearance: well nourished Orientation: alert, awake, oriented x3 and not confused [facility] Head: normocephalic and atraumatic Ears: external ears normal Nose: external nose normal and No nasal discharge Face and sinus: face symmetric and No dry mucous membranes Mouth: oral mucosae normal and moist mucous membranes Teeth and gingiva: dentition normal Throat: tonsils normal Eyes General: appearance normal, both eyes and all related structures Eyelids: eyelids normal Conjunctivae: conjunctivae normal Sclera: sclerae normal Pupils: PERRL EOM: EOM intact bilaterally Neck Neck: normal visual inspection, trachea midline, No lymphadenopathy, No midline deformity and No JVD Lymphatic: No lymphedema Chest Other: Patient does not have significant tenderness of his chest wall, but with positional change, such as sitting up for exam, he winces and moves slowly, clutching his left chest. He states during exam that this sort of positional change causes his pain to be worse. Resp Effort & Inspection: normal respiratory effort, able to speak in complete sentences, no respiratory distress and no use of accessory muscles Auscultation: clear to auscultation bilaterally, no rhonchi and no wheezes Other: Patient has slight crackling in base of his right lung field. Cardio Rate: regular rate Rhythm: regular rhythm Heart Sounds: no click, no gallops, no murmurs and no rubs Pulses: normal peripheral pulses GI Inspection: non-distended Palpation: soft, no hepatosplenomegaly, No guarding, No pulsatile mass and No tender Back/Spine/Pelvis Back: No CVA tenderness Cervical Spine: cervical ROM normal and No pain with cervical ROM Thoracic/Lumbar Spine: thoracic and lumbar spine normal to inspection Skin General: no rashes or lesions noted, No jaundice and No petechiae Neuro General: alert, oriented x3, gait normal and no focal motor deficits Speech: speech normal Extrem General: full ROM, no clubbing, cyanosis or edema, no pedal edema and no calf tenderness Psych Appearance: well kempt Mental Status: mental status grossly normal Attitude: cooperative Thought Content: normal and suicidality Judgment: judgment good Course Course Course Narrative: The patient, overall, appeared quite well. His heart rate and oxygen saturation were normal, as was his temperature. The reported nature of the patient's pain still sounded most like a chest wall etiology, though I did consider the potential for pleuritic irritation. He had had a full workup y esterday, including EKG, labs and chest x-ray, all of which were unremarkable. I discussed with the patient his that from a diagnostic standpoint, we would not be able to identify either pleurisy or chest muscular spasm on imaging. Although we discussed not repeating the CT scan yesterday, due to a convincing mechanical source of chest pain, today we will repeat the CT because the patient has significant clot burden and is here for his 2nd return visit in the last 24 hours. Patient was treated symptomatically with Toradol and Dilaudid in the emergency department, and was given a L 0.9 normal saline. Workup revealed a a normal white blood cell count and CT showed that the overall clot burden was decreased. There was an appearance of probable pulmonary infarcts in atelectasis at the lung bases and periphery. I discussed the results with the patient and his . The patient was feeling much better after Toradol and Dilaudid and I did discuss with him that he probably should h ave something at home to take for pain. I have also asked the respiratory therapist to bring the patient an incentive spirometer. We have discussed home management of the symptoms, as well as the usual indications for return. Patient will be returning to his home in [place] in about a week and a half. Orders Ordered: Discontinued Medications Hydromorphone HCl (Dilaudid) 0.5 mg IV NOW ONE Stop: 08/13/19 08:46 Last Admin: 08/13/19 08:52 Dose: 0.5 mg Documented by: SHARMILA Sodium Chloride (Normal Saline 0.9%) 1,000 mls @ 1,000 mls/hr IV BOLUS ONE Stop: 08/13/19 09:44 Last Infusion: 08/13/19 09:52 Dose: 0 mls/hr Documented by: Admin: 08/13/19 08:52 Dose: 1,000 mls/hr Documented by: SHARMILA Ketorolac Tromethamine (Toradol) 30 mg IV NOW ONE Stop: 08/13/19 08:46 Last Admin: 08/13/19 08:53 Dose: 30 mg Documented by: SHARMILA Vital Signs Vital signs: Vital Signs - 8 hr 08/13/19 07:55 Temperature 98.6 F Pulse Rate 101 H Respiratory Rate 20 Blood Pressure 157/77 H Pulse Oximetry 99 MDM - SOB/Dyspnea Medical Records Attestation: I reviewed the patient's medical records. Lab Data Attestation: I reviewed the patient's lab results. Result diagrams: 08/13/19 08:05 Labs: Lab Results 08/13/19 08/13/19 Range/Units 08:05 08:05 WBC 10.1 (4.5-11.0) X10^3/uL RBC 5.24 (4.5-5.9) X10^6/uL Hgb 16.0 (13.5-17.5) g/dL Hct 45.4 (41-53) % MCV 86.7 (80-100) fL MCH 30.6 (26-34) PG MCHC 35.3 (30-36) % RDW 13.0 (11.6-14.8) % Plt Count 230 (150-400) X10^3/uL Neut % (Auto) 82.2 H (50-75) % Lymph % (Auto) 8.4 L (25-40) % Brooke % (Auto) 8.4 (3-14) % Eos % (Auto) 0.5 L (2-4) % Baso % (Auto) 0.5 (0-2) % Neut # (Auto) 8300 H (8949-2957) /uL Lymph # (Auto) 800 L (5122-7013) /uL Brooke # (Auto) 800 (0-900) /uL Eos # (Auto) 0 (0-450) /uL Baso # (Auto) 0 (0-100) /uL PT 17.5 H (10.1-12.7) SECONDS INR 1.5 H (0.9-1.3) Imaging Data CT scan - chest: Radiologist's impression: PROCEDURE: CT ANGIO CHEST PE PROTOCOL INDICATIONS: left chest pain TECHNIQUE: After the administration of intravenous contrast, 2 mm thick sections acquired from the pulmonary apices to the posterior costophrenic angles. 3-dimensional maximum intensity projection (MIP) coronal and sagittal reformats were then acquired through the thorax. For radiation dose reduction, the following was used: automated exposure control, adjustment of mA and/or kV according to patient size. COMPARISON: [facility], CT, CT ANGIO CHEST PE PROTOCOL, 08/08/2019, 19:08. FINDINGS: Image quality: Excellent. Pulmonary arteries: Since prior study, there is interval resolution of the previously seen saddle embolus at the main pulmonary artery bifurcation. Residual pulmonary emboli still seen within the left, left upper lobar and lower lobar pulmonary arteries, as well as right posterior segmental pulmonary artery, although overall embolic burden has decreased. Interval resolution of the right upper lobar pulmonary emboli Lungs and pleura: Patchy areas of subpleural consolidation present within both lung bases dependently. No pneumothorax. Trace left pleural fluid. Mediastinum: Heart size is enlarged, without pericardial effusion. No abnormal bowing of the interventricular septum No mediastinal or hilar adenopathy. Thoracic aorta is normal in caliber and enhancement. Esophagus is normal in caliber, without hiatal hernia. Bones and chest wall: No suspicious bony lesions. Ribs and thoracic spine appear intact throughout. Thyroid gland negative. No axillary or supraclavicular adenopathy. Abdomen: Visualized upper abdominal solid organs appear normal in the early arterial phase of enhancement. IMPRESSION: Interval decrease in pulmonary emboli since the prior study dated 08/08/19, including the previously visualized large saddle embolus at the main pulmonary artery bifurcation. Interval development of bibasilar, dependent and subpleural areas of patchy consolidation, possibly aspiration/atelectasis although cannot exclude superimposed pulmonary infarction since prior study. Cardiomegaly Trace left pleural effusion Dictated by: Mac Oneill M.D. on 08/13/2019 at 10:25 Approved by: Mac Oneill M.D. on 08/13/2019 at 10:33 ECG Data Attestation: I personally reviewed and interpreted this ECG as follows: (See below) Interpretation: Twelve lead EKG performed August 13, 2019 at 8:13 a.m. as follows: Regular ventricular rhythm with a rate of 91 beats per minute MT interval is 156 millisecond QRS duration 98 milliseconds QTC interval 387 millisecond No ectopy Interpretation: Normal sinus rhythm; nonspecific T-wave abnormality; no signs of acute ischemia; borderline EKG is interpreted by ED MD. Discharge Plan Departure Patient Disposition: Home Clinical Impression: Embolism, pulmonary with infarction, Chest wall pain Discharge Date/Time: 08/13/19 11:40 Instructions: DI for Pulmonary Embolism Activity Restrictions/Additional Instructions: Your CT scan today shows decreasing clot burden in your pulmonary circulation. You do have findings consistent with atelectasis (collapse of lung air cells) and pulmonary infarction (lung cell due to loss of circulation from the clots). These are not unusual findings after pulmonary emboli. The atelectasis can be helped by working on breathing deeply. Using the incentive spirometer and the pain medication will help you to be able to do this better. It will also help to prevent complications such as pneumonia. Your lungs will compensate for the cell loss. As time goes on, the inflammatory fluid that is causing the pain in your left chest cavity will dissipate and the pain will subside. Please continue your plans to follow up with your primary care physician in [place] when you return. Prescriptions: New hydrocodone-acetaminophen 5-325 mg tablet 1 tab PO Q4-6H PRN (Reason: pain) Qty: 20 RF: 0 No Action atorvastatin 40 mg Tablet 40 mg PO QPM RF: 0 lisinopril 10 mg Tablet 10 mg PO DAILY RF: 0 Eliquis 5 mg tablet 10 mg PO [id number] RF: 0
[2019-08-13] MEDS: SODIUM CHLORIDE 0.9% 1,000 ML 1000 ML IV (08:52)
[2019-08-13] MEDS: HYDROMORPHONE 0.5 MG INJ IV (08:52)
[2019-08-13] MEDS: KETOROLAC 60 MG/2 ML VIAL 30 MG IV (08:53)
[2019-08-13 08:56] LABS: Add Manual Diff / Slide Review NO; Basophils Absolute Auto 0 /uL (0-100); Basophils Percent Auto 0.5 % (0-2); Eosinophils Absolute Auto 0 /uL (0-450); Eosinophils Percent Auto 0.5 % (2-4); Hematocrit 45.4 % (41-53); Lymphocytes Absolute Auto 800 /uL (1100-4500); Lymphocytes Percent Auto 8.4 % (25-40); Mean Corpuscular HGB Conc 35.3 % (30-36); Mean Corpuscular Hemoglobin 30.6 PG (26-34); Mean Corpuscular Volume 86.7 fL (80-100); Monocytes Absolute Auto 800 /uL (0-900); Monocytes Percent Auto 8.4 % (3-14); Neutrophils Absolute Auto 8300 /uL (1500-7000); Neutrophils Percent Auto 82.2 % (50-75); Platelet Count 230 X10^3/uL (150-400); Red Blood Cell Count 5.24 X10^6/uL (4.5-5.9); White Blood Cell Count 10.1 X10^3/uL (4.5-11.0)
[2019-08-13 08:58] LABS: INR 1.5 (0.9-1.3); Prothrombin Time 17.5 SECONDS (10.1-12.7)
[2019-08-13 08:59] VITALS: BP 143/80; PULSE 85; RESP 18; O2SAT 99
[2019-08-13 09:00] VITALS: BP 131/78; PULSE 80; RESP 15; O2SAT 94
--- NOTE | 2019-08-13 09:53 | DI.CT.S_ITS ---
PROCEDURE: CT ANGIO CHEST PE PROTOCOL INDICATIONS: left chest pain TECHNIQUE: After the administration of intravenous contrast, 2 mm thick sections acquired from the pulmonary apices to the posterior costophrenic angles. 3-dimensional maximum intensity projection (MIP) coronal and sagittal reformats were then acquired through the thorax. For radiation dose reduction, the following was used: automated exposure control, adjustment of mA and/or kV according to patient size. COMPARISON: [facility], CT, CT ANGIO CHEST PE PROTOCOL, 08/08/2019, 19:08. FINDINGS: Image quality: Excellent. Pulmonary arteries: Since prior study, there is interval resolution of the previously seen saddle embolus at the main pulmonary artery bifurcation. Residual pulmonary emboli still seen within the left, left upper lobar and lower lobar pulmonary arteries, as well as right posterior segmental pulmonary artery, although overall embolic burden has decreased. Interval resolution of the right upper lobar pulmonary emboli Lungs and pleura: Patchy areas of subpleural consolidation present within both lung bases dependently. No pneumothorax. Trace left pleural fluid. Mediastinum: Heart size is enlarged, without pericardial effusion. No abnormal bowing of the interventricular septum No mediastinal or hilar adenopathy. Thoracic aorta is normal in caliber and enhancement. Esophagus is normal in caliber, without hiatal hernia. Bones and chest wall: No suspicious bony lesions. Ribs and thoracic spine appear intact throughout. Thyroid gland negative. No axillary or supraclavicular adenopathy. Abdomen: Visualized upper abdominal solid organs appear normal in the early arterial phase of enhancement. IMPRESSION: Interval decrease in pulmonary emboli since the prior study dated 08/08/19, including the previously visualized large saddle embolus at the main pulmonary artery bifurcation. Interval development of bibasilar, dependent and subpleural areas of patchy consolidation, possibly aspiration/atelectasis although cannot exclude superimposed pulmonary infarction since prior study. Cardiomegaly Trace left pleural effusion Dictated by: Mac Oneill M.D. on 08/13/2019 at 10:25 Approved by: Mac Oneill M.D. on 08/13/2019 at 10:33
[2019-08-13 10:00] VITALS: BP 136/73; PULSE 76; RESP 16; O2SAT 96
[2019-08-13 10:30] VITALS: BP 143/68; PULSE 78; RESP 17; O2SAT 96
[2019-08-13 11:30] VITALS: BP 135/74; PULSE 79; RESP 14; O2SAT 95
== END 2019-08-13 11:40 | disposition home or self-care (01) ==
PROVIDERS: Emergency Provider Emergency Medicine
DX: I26.09 Other pulmonary embolism with acute cor pulmonale (principal); Z86.711 Personal history of pulmonary embolism; R07.89 Other chest pain; I10 Essential (primary) hypertension; E78.2 Mixed hyperlipidemia
CPT/HCPCS: 36415; 71275; 85025; 85610; 93005; 96361; 96374; 96375; 99283; 99285; J1170; J1885; Q9967